=== PATIENT | female | born 1995 | race Caucasian/White ===

== ENCOUNTER 2016-08-22 18:38 | Outpatient (CLI) | payer MEDICAID ==
[2016-08-22 19:49] LABS: APPEARANCE,URINE CLEAR; BILIRUBIN,URINE NEGATIVE (NEGATIVE); GLUCOSE, URINE NEGATIVE (NEGATIVE); KETONES,URINE NEGATIVE (NEGATIVE); LEUKOCYTE ESTERASE,URINE NEGATIVE (NEGATIVE); NITRITE,URINE NEGATIVE (NEGATIVE); PROTEIN,URINE NEGATIVE (NEGATIVE); URINE SPECIFIC GRAVITY 1.009; UROBILINOGEN,URINE NEGATIVE mg/dL (<2.0)
[2016-08-22 20:03] LABS: URINE BARBITURATES SCREEN NEGATIVE; URINE METHADONE SCREEN NEGATIVE; URINE OPIATES LOW NEGATIVE; URINE PHENCYCLIDINE SCREEN NEGATIVE
--- NOTE | 2016-08-22 20:42 | Non Stress Test Report ---
Non Stress Test Datetime Report Generated by CPN: 08/22/2016 20:42 DEMOGRAPHIC Test Number: 1 EGA NST: 32.2 INDICATION Indication for Study: Other Indication for Study (NST) Other: LC URINE RESULTS Urine Protein, NST: Negative Urine Ketones - NST: Negative Urine Glucose - NST: Negative Urine Blood - NST: Negative MONITORING Monitor Explained: Monitor Explained; Test Explained; Patient Verbalized Understanding; Other Time on Monitor: 08/22/2016 19:56 Time off Monitor: 08/22/2016 20:28 NST Duration: 32 NST INTERVENTIONS NST Interventions: PO Hydration Physician Notified NST: Dr. Sarabia BABY A: [id number] BABY A Movement : Present Movement : Present Contraction Frequency : 0 FHR Baseline : 135 Accelerations : 15X15 Decelerations : None Variability : Moderate 6-25bpm NST Review: Meets Criteria for Reactive NST NST Review: Meets Criteria for Reactive NST NST Review and Verified By : Angel Austin RN NST Results: Reactive NST Results: Reactive NST REPORT Report Trigger: Send Report
== END 2016-08-22 20:34 | disposition home or self-care (01) ==
LOC: LC 18:38
PROVIDERS: ATTEND Student in an Organized Health Care Education/Training Program
PROC: 4A1HXCZ Monitoring of Products of Conception, Cardiac Rate, External Approach (ICD-10-PCS; principal; 2016-08-22)
DX: O47.03 False labor before 37 completed weeks of gestation, third trimester (principal); Z3A.32 32 weeks gestation of pregnancy
CPT/HCPCS: 80307; 81001

== ENCOUNTER 2016-08-28 17:25 | Outpatient (CLI) | payer MEDICAID ==
[2016-08-28 18:10] LABS: APPEARANCE,URINE SLIGHTLY-CLOUDY; BILIRUBIN,URINE NEGATIVE (NEGATIVE); GLUCOSE, URINE NEGATIVE (NEGATIVE); KETONES,URINE 80 mg/dL (NEGATIVE); LEUKOCYTE ESTERASE,URINE NEGATIVE (NEGATIVE); NITRITE,URINE NEGATIVE (NEGATIVE); PROTEIN,URINE NEGATIVE (NEGATIVE); URINE SPECIFIC GRAVITY 1.012; UROBILINOGEN,URINE NEGATIVE mg/dL (<2.0)
[2016-08-28 18:21] LABS: URINE BARBITURATES SCREEN NEGATIVE; URINE METHADONE SCREEN NEGATIVE; URINE OPIATES LOW NEGATIVE; URINE PHENCYCLIDINE SCREEN NEGATIVE
--- NOTE | 2016-08-28 19:56 | Non Stress Test Report ---
Non Stress Test Datetime Report Generated by CPN: 08/28/2016 19:56 DEMOGRAPHIC EGA NST: 33.1 INDICATION Indication for Study: Ordered by Provider Indication for Study (NST) Other: LC MONITORING Time on Monitor: 08/28/2016 18:30 Time off Monitor: 08/28/2016 19:00 NST Duration: 30 NST INTERVENTIONS NST Interventions: PO Hydration Physician Notified NST: Dr. Gavin BABY A: [id number] BABY A Movement : Present Contraction Frequency : x0 FHR Baseline : 145 Accelerations : 15X15 Decelerations : None Variability : Moderate 6-25bpm NST Review: Meets Criteria for Reactive NST NST Review and Verified By : Ronn RiveraKyle RN NST Results: Reactive NST REPORT Report Trigger: Send Report
== END 2016-08-28 19:47 | disposition home or self-care (01) ==
LOC: LC 17:25
PROVIDERS: ATTEND Obstetrics & Gynecology
PROC: 4A1HXCZ Monitoring of Products of Conception, Cardiac Rate, External Approach (ICD-10-PCS; principal; 2016-08-28)
DX: O47.03 False labor before 37 completed weeks of gestation, third trimester (principal); Z3A.33 33 weeks gestation of pregnancy
CPT/HCPCS: 80307; 81001

== ENCOUNTER 2016-10-04 20:51 | Outpatient (CLI) | payer MEDICAID ==
[2016-10-04 21:28] LABS: APPEARANCE,URINE SLIGHTLY-CLOUDY; BILIRUBIN,URINE NEGATIVE (NEGATIVE); GLUCOSE, URINE NEGATIVE (NEGATIVE); KETONES,URINE NEGATIVE (NEGATIVE); LEUKOCYTE ESTERASE,URINE TRACE (NEGATIVE); NITRITE,URINE NEGATIVE (NEGATIVE); PROTEIN,URINE NEGATIVE (NEGATIVE); URINE SPECIFIC GRAVITY 1.011; UROBILINOGEN,URINE NEGATIVE mg/dL (<2.0)
[2016-10-04 21:42] LABS: URINE BARBITURATES SCREEN NEGATIVE; URINE METHADONE SCREEN NEGATIVE; URINE OPIATES LOW NEGATIVE; URINE PHENCYCLIDINE SCREEN NEGATIVE
--- NOTE | 2016-10-04 23:05 | Non Stress Test Report ---
Non Stress Test Datetime Report Generated by CPN: 10/04/2016 23:05 DEMOGRAPHIC EGA NST: 38.3 INDICATION Indication for Study: Ordered by Provider Indication for Study (NST) Other: LC URINE RESULTS Urine Protein, NST: Negative Urine Ketones - NST: Negative Urine Glucose - NST: Negative Urine Blood - NST: Negative MONITORING Monitor Explained: Monitor Explained; Test Explained; Patient Verbalized Understanding Time on Monitor: 10/04/2016 22:00 Time off Monitor: 10/04/2016 22:24 NST Duration: 24 NST INTERVENTIONS NST Interventions: PO Hydration; Other NST Interventions Other: popsicle Physician Notified NST: Dr. Neilsen BABY A: [id number] BABY A Movement : Present Contraction Frequency : none FHR Baseline : 120 Accelerations : 15X15 Decelerations : None Variability : Moderate 6-25bpm NST Review: Meets Criteria for Reactive NST NST Review and Verified By : Carmen Horan RN Results: Reactive NST REPORT Report Trigger: Send Report
== END 2016-10-04 22:33 | disposition home or self-care (01) ==
LOC: LC 20:51
PROVIDERS: ATTEND Specialist
PROC: 4A1HXCZ Monitoring of Products of Conception, Cardiac Rate, External Approach (ICD-10-PCS; principal; 2016-10-04)
DX: O36.8130 Decreased fetal movements, third trimester, not applicable or unspecified (principal); Z3A.38 38 weeks gestation of pregnancy
CPT/HCPCS: 59025; 80307; 81005

== ENCOUNTER 2016-10-08 13:44 | Outpatient (CLI) | payer MEDICAID ==
[2016-10-08 14:26] LABS: APPEARANCE,URINE CLEAR; BILIRUBIN,URINE NEGATIVE (NEGATIVE); GLUCOSE, URINE NEGATIVE (NEGATIVE); KETONES,URINE NEGATIVE (NEGATIVE); LEUKOCYTE ESTERASE,URINE NEGATIVE (NEGATIVE); NITRITE,URINE NEGATIVE (NEGATIVE); PROTEIN,URINE NEGATIVE (NEGATIVE); URINE SPECIFIC GRAVITY 1.013; UROBILINOGEN,URINE NEGATIVE mg/dL (<2.0)
[2016-10-08 14:41] LABS: URINE BARBITURATES SCREEN NEGATIVE; URINE METHADONE SCREEN NEGATIVE; URINE OPIATES LOW NEGATIVE; URINE PHENCYCLIDINE SCREEN NEGATIVE
--- NOTE | 2016-10-08 16:14 | RADIOLOGY REPORT (SQ) ---
EXAM DESCRIPTION: U/S OB LIMITED COMPLETED DATE/TIME: 10/08/2016 4:01 pm REASON FOR STUDY: CLEMENTE COMPARISON: None. TECHNIQUE: Limited transabdominal grayscale ultrasound for evaluation of specific requested obstetri javier parameters. LIMITATIONS: None. FINDINGS: CLEMENTE: 18.5 cm. FHR: 155 beats per minute. PRESENTATION: Cephalic. OTHER: No other significant findings. IMPRESSION: LIMITED OBSTETRICAL ULTRASOUND WITH MEASURED PARAMETERS DELINEATED ABOVE. Trimester of : Third trimester - 28 weeks to delivery. TECHNICAL DOCUMENTATION: JOB ID: [id number]- All Rights Reserved
--- NOTE | 2016-10-08 16:14 | Non Stress Test Report ---
Non Stress Test Datetime Report Generated by CPN: 10/08/2016 16:14 DEMOGRAPHIC EGA NST: 39.0 INDICATION Indication for Study: Ordered by Provider MONITORING Monitor Explained: Monitor Explained; Test Explained; Patient Verbalized Understanding Time on Monitor: 10/08/2016 14:05 Time off Monitor: 10/08/2016 15:37 NST Duration: 92 NST INTERVENTIONS NST Interventions: PO Hydration Physician Notified NST: H. Nilson, CNM BABY A: [id number] BABY A Movement : Present Contraction Frequency : none FHR Baseline : 135 Accelerations : 15X15 Decelerations : None Variability : Moderate 6-25bpm NST Review: Meets Criteria for Reactive NST NST Review: Meets Criteria for Reactive NST NST Review and Verified By : SHAKIR DESIR Results: Reactive NST Results: Reactive NST REPORT Report Trigger: Send Report
== END 2016-10-08 16:13 | disposition home or self-care (01) ==
LOC: LC 13:44
PROVIDERS: ATTEND Obstetrics & Gynecology
PROC: 4A1HXCZ Monitoring of Products of Conception, Cardiac Rate, External Approach (ICD-10-PCS; principal; 2016-10-08)
DX: Z34.93 Encounter for supervision of normal pregnancy, unspecified, third trimester (principal); Z36 Encounter for antenatal screening of mother; Z3A.39 39 weeks gestation of pregnancy
CPT/HCPCS: 59025; 81005; 80307; 76815; Q0114

== ENCOUNTER 2016-10-10 07:13 | Outpatient (CLI) | payer MEDICAID ==
[2016-10-10 07:53] LABS: APPEARANCE,URINE CLEAR; BILIRUBIN,URINE NEGATIVE (NEGATIVE); GLUCOSE, URINE NEGATIVE (NEGATIVE); KETONES,URINE NEGATIVE (NEGATIVE)
[2016-10-10 07:54] LABS: LEUKOCYTE ESTERASE,URINE TRACE (NEGATIVE); NITRITE,URINE NEGATIVE (NEGATIVE); PROTEIN,URINE NEGATIVE (NEGATIVE); URINE SPECIFIC GRAVITY 1.013; UROBILINOGEN,URINE NEGATIVE mg/dL (<2.0)
[2016-10-10 08:08] LABS: URINE BARBITURATES SCREEN NEGATIVE; URINE METHADONE SCREEN NEGATIVE; URINE OPIATES LOW NEGATIVE; URINE PHENCYCLIDINE SCREEN NEGATIVE
[2016-10-10] MEDS ORDERED: HYDROXYZINE PAMOATE 50 MG CAPSULE ONE (08:11)
== END 2016-10-10 08:21 | disposition home or self-care (01) ==
LOC: LC 07:13
PROVIDERS: ATTEND Specialist
PROC: 4A1HXCZ Monitoring of Products of Conception, Cardiac Rate, External Approach (ICD-10-PCS; principal; 2016-10-10)
DX: O47.1 False labor at or after 37 completed weeks of gestation (principal); O36.8130 Decreased fetal movements, third trimester, not applicable or unspecified; Z3A.39 39 weeks gestation of pregnancy
CPT/HCPCS: 59025; 81005; 80307; J3490

== ENCOUNTER 2016-10-10 18:47 | Inpatient (IN) | payer MEDICAID ==
[2016-10-10] MEDS ORDERED: MISOPROSTOL 0.2 MG TABLET ONE (20:13)
[2016-10-10] MEDS ORDERED: LIDOCAINE 1% INJ-PF (10 MG/ML) 30 ML SDV ONE (20:13)
[2016-10-10] MEDS ORDERED: PENICILLIN G-K 5 MILLION UNIT VIAL ONE (20:13)
[2016-10-10] MEDS ORDERED: OXYTOCIN/NORMAL SALINE 20 UNIT/1,000 ML RTUINJ ONE (20:13)
[2016-10-10] MEDS ORDERED: PENICILLIN G POTASSIUM 5,000,000 UNIT in DEXTROSE 5%-WATER 100 ML IV ONE (20:16)
[2016-10-10] MEDS ORDERED: EPHEDRINE SULFATE INJ 50 MG/1 ML AMPULE ONE (20:39)
[2016-10-10] MEDS ORDERED: BUPIVACAINE HCL 0.25 % INJ/PF (2.5 MG/1 ML) 30 ML VIAL ONE (20:40)
[2016-10-10] MEDS ORDERED: FENTANYL/BUPIVACAINE/NS/PF 200 MCG/100 ML RTUINJ EPI ONE (20:40)
[2016-10-10 20:42] LABS: HEMOGLOBIN 11.7 g/dL (12.0-15.5); HGB HCT DIFFERENCE 0.1; MEAN CORPUSCULAR HEMOGLOBIN 26.8 pg (27.0-33.4); MEAN CORPUSCULAR HGB CONC 33.5 g/dL (32.0-36.0); MEAN CORPUSCULAR VOLUME 80 fl (80-97); RED BLOOD COUNT 4.37 10^6/uL (3.72-5.28); RED CELL DISTRIBUTION WIDTH 14.8 % (11.5-14.0); WHITE BLOOD COUNT 17.8 10^3/uL (4.0-10.5)
[2016-10-10] MEDS: RINGERS SOLUTION,LACTATED 1,000 ML IV PRN ×3 (21:00→23:17)
[2016-10-10 21:05] LABS: BASOPHILS % (MANUAL) 0 % (0-2); EOSINOPHILS % (MANUAL) 0 % (0-6); LYMPHOCYTES % (MANUAL) 6 % (13-45); TOTAL CELLS COUNTED 100
[2016-10-10 21:06] LABS: ANISOCYTOSIS SLIGHT; HYPOCHROMASIA SLIGHT; MICROCYTOSIS SLIGHT; TOXIC GRANULATION SLIGHT
[2016-10-10] MEDS ORDERED: FENTANYL/BUPIVACAINE/NS/PF 200 MCG/100 ML RTUINJ EPI PRN (22:26)
[2016-10-10] MEDS ORDERED: BUPIVACAINE HCL 0.25 % INJ/PF (2.5 MG/1 ML) 30 ML VIAL INFIL ONE (22:26)
[2016-10-10] MEDS ORDERED: BENZOIN/ALOE VERA/STORAX/TOLU TINCTURE 60 ML TP PRN (22:26)
[2016-10-10] MEDS ORDERED: DIPHENHYDRAMINE HCL 50 MG/ML VIAL IV PRN (22:26)
[2016-10-10] MEDS ORDERED: EPHEDRINE SULFATE INJ 50 MG/1 ML AMPULE IV PRN (22:26)
[2016-10-10] MEDS ORDERED: OXYTOCIN/NORMAL SALINE 20 UNIT/1,000 ML RTUINJ IV PRN (22:36)
[2016-10-11] MEDS ORDERED: FENTANYL/BUPIVACAINE/NS/PF 200 MCG/100 ML RTUINJ EPI PRN
[2016-10-11] MEDS ORDERED: PENICILLIN G POTASSIUM 2,500,000 UNIT in DEXTROSE 5%-WATER 50 ML IV SCH (00:16)
[2016-10-11] MEDS ORDERED: CEFAZOLIN SODIUM 1 GM in DEXTROSE 5%-WATER 50 ML IV PRN (00:30)
[2016-10-11] MEDS ORDERED: CITRIC ACID/SODIUM CITRATE ORAL SOLN 15 ML UDCUP ONE (00:30)
[2016-10-11] MEDS ORDERED: OXYTOCIN 10 UNIT/ML VIAL ONE (00:30)
[2016-10-11] MEDS ORDERED: CEFAZOLIN INJ 1 GM VIAL ONE (00:30)
[2016-10-11] MEDS ORDERED: FENTANYL CITRATE INJ/PF 250 MCG/5 ML AMPULE ONE (00:31)
[2016-10-11] MEDS ORDERED: FENTANYL CITRATE INJ/PF 100 MCG/2 ML AMPUL ONE ×2 (00:31→01:58)
[2016-10-11] MEDS ORDERED: EPHEDRINE SULFATE INJ 50 MG/1 ML AMPULE ONE (00:31)
[2016-10-11] MEDS ORDERED: MIDAZOLAM 2 MG/2 ML INJ ONE (00:31)
[2016-10-11] MEDS ORDERED: OXYTOCIN/NORMAL SALINE 0 UNIT/0 ML RTUINJ ONE (00:31)
[2016-10-11] MEDS ORDERED: LIDOCAINE 2% INJ-PF (20 MG/ML) 10 ML AMPUL ONE (00:32)
[2016-10-11] MEDS ORDERED: ONDANSETRON HCL INJ/PF 4 MG/2 ML SDV ONE (00:32)
[2016-10-11] MEDS ORDERED: PENICILLIN G-K 5 MILLION UNIT VIAL ONE (00:37)
[2016-10-11] MEDS ORDERED: FENTANYL CITRATE INJ/PF 100 MCG/2 ML AMPUL IV PRN ×2 (00:38)
[2016-10-11] MEDS ORDERED: PROMETHAZINE HCL INJ 25 MG/1 ML VIAL IV PRN ×2 (00:38→03:43)
[2016-10-11] MEDS ORDERED: DIPHENHYDRAMINE HCL 50 MG/ML VIAL IV PRN (00:38)
[2016-10-11] MEDS: FENTANYL CITRATE INJ/PF 100 MCG/2 ML AMPUL IV PRN ×2 (01:58→02:04)
[2016-10-11] MEDS: MEPERIDINE HCL/PF INJ 25 MG/1 ML DISP.SYRIN IV PRN ×2 (02:20→02:29)
[2016-10-11] MEDS ORDERED: MEPERIDINE HCL/PF INJ 25 MG/1 ML DISP.SYRIN ONE (02:22)
[2016-10-11] MEDS ORDERED: HYDROMORPHONE HCL INJ/PF 2 MG/ML AMPULE ONE (02:41)
[2016-10-11] MEDS ORDERED: HYDROMORPHONE HCL INJ/PF 2 MG/ML AMPULE IV ONE (02:42)
[2016-10-11] MEDS ORDERED: CEFAZOLIN 2 GM/D5W RTU 2 GM/50 ML RTUPB IV ONE (02:58)
--- NOTE | 2016-10-11 03:13 | Delivery Summary ---
Del Sum A-C Datetime Report Generated by CPN: 10/11/2016 03:13 DELIVERY PERSONNEL DELIVERY PERSONNEL: [phone];[id number] Delivery Doctor:: Vincent Fatima DO Anesthesiologist:: Chencho Gayle MD UTILIZATION MANAGEMENT RN:: Justin Morales CRNA Labor and Delivery Nurse:: Lay Austin RN Neonatal Nurse Practitioner:: BREE Herrera Nursery Nurse:: Emily Aguirre RN Railcar Switcher/CREDIT VERIFICATION CLERK: ST Vee Railcar Switcher/CREDIT VERIFICATION CLERK: Jessica Singletary ST MATERNAL INFORMATION Delivery Anesthesia: Epidural Medications After Delivery: Pitocin Drip 20 Units/1000ml NSS Estimated Blood Loss (ml): 600 Maternal Complications: None LABOR SUMMARY EDC: 10/15/2016 00:00 No. Babies in Womb: 1 Attempted: No Labor Anesthesia: Epidural LABOR INFORMATION Onset of Labor: 10/11/2016 19:00 Oxytocin: N/A Group B Beta Strep: positive Antibiotics # of Doses: 2 Antibiotics Time of Last Dose: 003 Name of Antibiotic Given: PCN G Steroids Given: None Reason Steroids Not Administered: Not Applicable MEMBRANES Membranes Rupture Method: Spontaneous Rupture of Membranes: 10/10/2016 14:00 Length of Rupture (hr): 11.25 Amniotic Fluid Color: Clear STAGES OF LABOR Stage 3 hr: 0 Stage 3 min: 1 Total Time in Labor hr: -17 Total Time in Labor min: -44 VAGINAL DELIVERY Episiotomy: None Laceration Extension: N/A Laceration Type: None Sponge Count Correct: N/A CSECTION DELIVERY Primary Indication: Nonreassuring Status CSection Urgency: Non-Scheduled CSection Incidence: Primary Labor: Labor Elective: N/A CSection Incision: Lower Uterine Transverse BABY A INFORMATION Delivery Date/Time: 10/11/2016 01:15 Method of Delivery: Born in Route : No : N/A Forceps: N/A Vacuum Extraction: N/A Shoulder Dystocia : No PRESENTATION/POSITION BABY A Presentation: Cephalic Cephalic Presentation: Vertex Breech Presentation: N/A PLACENTA INFORMATION BABY A Placenta Delivery Time : 10/11/2016 01:16 Placenta Method of Delivery: Manual Removal Placenta Status: Delivered SCORES BABY A Heart Rate 1 min: >100 bpm Resp Effort 1 min: Good Cry Reflex Irritability 1 min: Cough or Sneeze or Pulls Away Muscle Tone 1 min: Active Motion Color 1 min: Body Howe, Extremities Blue Resuscitation Effort 1 min: N/A SCORE 1 MIN: 9 Heart Rate 5 min: >100 bpm Resp Effort 5 min: Good Cry Reflex Irritability 5 min: Cough or Sneeze or Pulls Away Muscle Tone 5 min: Active Motion Color 5 min: Body Howe, Extremities Blue Resuscitation Effort 5 min: N/A SCORE 5 MIN: 9 INFORMATION BABY A Gestational Age at Delivery: 39.3 Gestational Status: Full Term- 39- 40.6 Weeks Infant Outcome : Liveborn Condition : Stable Sex: Male IDENTIFICATION BABY A Verification Date/Time: 10/11/2016 01:21 ID Band Number: [id number] Mother's Name Verified: Yes Infant RN Verifying Infant: V Monk RN Additional Verifying Personnel: B Solorzano, RN WEIGHT/LENGTH BABY A Infant Birthweight (gm): 3400 Infant Weight (lb): 7 Infant Weight (oz): 8 Length (in): 19.00 Infant Length (cm): 48.26 CORD INFORMATION BABY A No. Cord Vessels: 3 Nuchal Cord : N/A Nuchal Cord- Other: body cord Cord Blood Taken: Yes-For Storage (Mom's Blood type +) Suction: None ASSESSMENT BABY A Infant Complications: Multiple Variable Decels Physical Findings at Delivery: Molding of the Head Respirations: Appears Normal Skin to Skin: Yes Skin to Skin Time (min): 3 Infant Care By: SHAKIR Chacko Transferred To: Nursery BABY B INFORMATION : N/A
[2016-10-11] MEDS ORDERED: SIMETHICONE 80 MG TAB.CHEW PO PRN (03:43)
[2016-10-11] MEDS ORDERED: HYDROMORPHONE HCL INJ/PF 2 MG/ML AMPULE IV PRN (03:43)
[2016-10-11] MEDS ORDERED: MEASLES,MUMPS&RUBELLA VACC/PF 0.5 ML VIAL SUBCUT PRN (03:43)
[2016-10-11] MEDS ORDERED: OXYCODONE-ACETAMINOPHEN 5-325 MG TABLET PO PRN (03:43)
[2016-10-11] MEDS ORDERED: DIPH/PERTUSS(ACELL)/TETANUS VAC/PF 0.5 ML SYR (>=10YO) IM PRN (03:43)
[2016-10-11] MEDS ORDERED: ACETAMINOPHEN 325 MG TABLET PO PRN (03:43)
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
[2016-10-11] MEDS: IBUPROFEN 800 MG TABLET PO SCH ×3 (07:00→18:09)
[2016-10-11] MEDS: RINGERS SOLUTION,LACTATED 1,000 ML IV PRN ×2 (07:24→14:58)
--- NOTE | 2016-10-11 09:44 | PDOC PROGRESS REPORT ---
Subjective-OB Subjective: Post Delivery Day: 20 year old. Denies any needs at this time Doing well, holding baby, hsb at BS, pain under control, breast feeding, drowsy from pain meds Physical Exam (OB) Vital Signs: Temp Pulse Resp BP Pulse Ox 98.1 F 107 H 16 120/65 98 10/11/16 08:29 10/11/16 08:29 10/11/16 08:29 10/11/16 08:29 10/11/16 08:29 Intake & Output 10/10/16 10/11/16 10/12/16 06:59 06:59 06:59 Weight 121.85 kg - Dressing Removed: No Incision: Dressing - Lochia Lochia Amount: Small 10-25 ml Lochia Color: Rubra/Red - Abdomen Description: Soft, Round Hernia Present: No Fundal Description: Firm, Midline Fundal Height: u/u - u/2 Objective-Diagnostic Laboratory: 10/10/16 20:28 10/10/16 10/10/16 20:28 20:28 WBC 17.8 H RBC 4.37 Hgb 11.7 L Hct 35.0 L MCV 80 MCH 26.8 L MCHC 33.5 RDW 14.8 H Plt Count 213 Seg Neutrophils % Not Reportable Lymphocytes % Not Reportable Monocytes % Not Reportable Eosinophils % Not Reportable Basophils % Not Reportable Absolute Neutrophils Not Reportable Absolute Lymphocytes Not Reportable Absolute Monocytes Not Reportable Absolute Eosinophils Not Reportable Absolute Basophils Not Reportable Blood Type A POSITIVE Antibody Screen NEGATIVE Assessment and Plan(PN) - Assessment and Plan (1) GBS (group B Streptococcus carrier), +RV culture, currently Is this a current diagnosis for this admission?: Yes (2) Delivery by emergency caesarean section Is this a current diagnosis for this admission?: Yes - Time Spent with Patient Time with patient: Less than 15 minutes Medications reviewed and adjusted accordingly: Yes - Disposition Anticipated Discharge: Home Within: within 48 hours
[2016-10-11] MEDS: PRENATAL VITAMIN W-O CA NO5/FE FUMARATE/FA CAPSULE PO SCH (09:46)
[2016-10-11] MEDS: DOCUSATE SODIUM 100 MG CAPSULE PO SCH ×2 (09:46→18:10)
[2016-10-11] MEDS: OXYCODONE-ACETAMINOPHEN 5-325 MG TABLET PO PRN ×2 (16:19→21:33)
[2016-10-12] MEDS: IBUPROFEN 800 MG TABLET PO SCH ×4 (00:09→17:22)
[2016-10-12] MEDS: OXYCODONE-ACETAMINOPHEN 5-325 MG TABLET PO PRN ×4 (04:35→22:57)
[2016-10-12 06:23] LABS: MEAN CORPUSCULAR HGB CONC 33.2 g/dL (32.0-36.0); MEAN CORPUSCULAR VOLUME 81 fl (80-97); RED CELL DISTRIBUTION WIDTH 15.2 % (11.5-14.0)
[2016-10-12] MEDS: DOCUSATE SODIUM 100 MG CAPSULE PO SCH ×2 (09:41→17:21)
[2016-10-12] MEDS: PRENATAL VITAMIN W-O CA NO5/FE FUMARATE/FA CAPSULE PO SCH (09:41)
--- NOTE | 2016-10-12 10:00 | PDOC PROGRESS REPORT ---
Subjective-OB Subjective: Post Delivery Day: 20 year old. Denies any needs at this time Doing well, no c/o, feeling better today, voiding, ambulating, appetite good Physical Exam (OB) Vital Signs: Temp Pulse Resp BP Pulse Ox 98.2 F 101 H 17 120/74 97 10/12/16 08:18 10/12/16 08:18 10/12/16 08:18 10/12/16 08:18 10/12/16 08:18 Intake & Output 10/11/16 10/12/16 10/13/16 06:59 06:59 06:59 Intake Total 2600 Output Total 1800 Balance 800 Weight 121.85 kg - PIH/Pre-Eclampsia DTR's: 1 + Clonus: Negative Headache: Absent Epigastric Pain: No Visual Changes: No - Dressing Removed: No Incision: Dressing - Lochia Lochia Amount: Small 10-25 ml Lochia Color: Rubra/Red - Abdomen Description: Soft, Round Hernia Present: No Fundal Description: Firm, Midline Fundal Height: u/u - u/2 Objective-Diagnostic Laboratory: 10/12/16 06:08 10/12/16 06:08 WBC 13.0 H RBC 3.70 L Hgb 10.0 L Hct 30.0 L MCV 81 MCH 27.0 MCHC 33.2 RDW 15.2 H Plt Count 158 Assessment and Plan(PN) - Assessment and Plan (1) GBS (group B Streptococcus carrier), +RV culture, currently Is this a current diagnosis for this admission?: Yes (2) Delivery by emergency caesarean section Is this a current diagnosis for this admission?: Yes - Time Spent with Patient Time with patient: Less than 15 minutes Medications reviewed and adjusted accordingly: Yes - Disposition Anticipated Discharge: Home Within: within 24 hours
[2016-10-13] MEDS: IBUPROFEN 800 MG TABLET PO SCH ×3 (00:25→11:08)
[2016-10-13 08:42] VITALS: BP 119/68
[2016-10-13] MEDS: DOCUSATE SODIUM 100 MG CAPSULE PO SCH (09:27)
[2016-10-13] MEDS: PRENATAL VITAMIN W-O CA NO5/FE FUMARATE/FA CAPSULE PO SCH (09:27)
--- NOTE | 2016-10-13 10:39 | PDOC PROGRESS REPORT ---
Subjective-OB Subjective: Post Delivery Day: 20 year old. Denies any needs at this time Doing well, no c/o, OOB walking, passing gas, eating well, voiding, breast feeding Physical Exam (OB) Vital Signs: Temp Pulse Resp BP Pulse Ox 97.9 F 100 14 119/68 100 10/13/16 10:32 10/13/16 10:32 10/13/16 10:32 10/13/16 08:39 10/13/16 10:32 Intake & Output 10/12/16 10/13/16 10/14/16 06:59 06:59 06:59 Intake Total 2600 240 Output Total 1800 Balance 800 240 - PIH/Pre-Eclampsia DTR's: 1 + Clonus: Negative Headache: Absent Epigastric Pain: No Visual Changes: No - Dressing Removed: No Incision: Well Approximated Closure Type: op site - Lochia Lochia Amount: Scant < 10 ml Lochia Color: Rubra/Red - Abdomen Description: Tender, Soft, Round Hernia Present: No Fundal Description: Firm, Midline Fundal Height: u/u - u/2 Objective-Diagnostic Laboratory: 10/12/16 06:08 Assessment and Plan(PN) - Assessment and Plan (1) GBS (group B Streptococcus carrier), +RV culture, currently Is this a current diagnosis for this admission?: Yes (2) Delivery by emergency caesarean section Is this a current diagnosis for this admission?: Yes - Time Spent with Patient Time with patient: Less than 15 minutes Medications reviewed and adjusted accordingly: Yes - Disposition Anticipated Discharge: Home Within: Other - home today
--- NOTE | 2016-10-13 10:42 | PDOC DISCHARGE SUMMARY ---
Final Diagnosis Discharge Date: 10/13/16 - Final Diagnosis (1) GBS (group B Streptococcus carrier), +RV culture, currently Is this a current diagnosis for this admission?: Yes (2) Delivery by emergency caesarean section Is this a current diagnosis for this admission?: Yes Discharge Data - Discharge Medication Home Medications: Pnv No.122/Iron/Folic Acid [ Multi Tablet] 1 tab PO DAILY 08/22/16 Ibuprofen [Motrin 800 mg Tablet] 800 mg PO Q6 #60 tablet 10/13/16 Oxycodone HCl/Acetaminophen [Percocet 5-325 mg Tablet] 1 tab PO Q4HP PRN #30 tablet 10/13/16 Gestational Age: 39.3 Reason(s) for Admission: Onset of Labor, Group B Strep Positive Procedures: NST, Ultrasound Intrapartum Procedure(s): : Low Cervical, Transverse - Data Baby 1 Male at 1 minute: 9 at 5 minutes: 9 Weight: 3.402 kg Home with Mother: Yes Complications: No - Diagnosis Test Laboratory: Temp Pulse Resp BP Pulse Ox 97.9 F 100 14 119/68 100 10/13/16 10:32 10/13/16 10:32 10/13/16 10:32 10/13/16 08:39 10/13/16 10:32 10/10/16 10/12/16 20:28 06:08 RBC 4.37 3.70 L Hgb 11.7 L 10.0 L Hct 35.0 L 30.0 L - Discharge information/Instructions Discharge Activity: Activity As Tolerated, No Driving, No Lifting Over 10 Pounds , No Lifting/Push/Pulling, Pelvic Rest, No tub bath Discharge Diet: As Tolerated, Regular Disposition: HOME, SELF-CARE Follow up with: [facility] in: 1, Weeks
== END 2016-10-13 11:43 | disposition home or self-care (01) | DRG 766 ==
LOC: LC 18:47 → LR 20:19 → 2S 10-11 04:04
PROVIDERS: ADMIT Obstetrics & Gynecology; ATTEND Obstetrics & Gynecology
PROC: 10D00Z1 Extraction of Products of Conception, Low, Open Approach (ICD-10-PCS; principal; 2016-10-11)
DX: O76 Abnormality in fetal heart rate and rhythm complicating labor and delivery (principal); Z37.0 Single live birth; Z3A.39 39 weeks gestation of pregnancy; O99.824 Streptococcus B carrier state complicating childbirth
CPT/HCPCS: 1961; 36415; 85025; 85027; 86592; 86850; 86900; 86901; 90715; 94760; 94799; J0690; J1170; J2175; J2250; J2405; J2540; J2590; J3010; J3490; J7120

== ENCOUNTER 2016-10-21 15:32 | Observation (INO) | payer MEDICAID ==
[~2016-10-21 15:32] MED LIST: LIDOCAINE 2% INJ-PF (20 MG/ML) 10 ML AMPUL ONE; ONDANSETRON HCL INJ/PF 4 MG/2 ML SDV ONE; SUCCINYLCHOLINE CHLORIDE INJ 200 MG/10 ML VIAL ONE
[2016-10-21] MEDS: CEFAZOLIN 1 GM/D5W RTU 1 GM/50 ML RTUPB IV SCH (17:19)
[2016-10-21] MEDS ORDERED: CEFAZOLIN 1 GM/D5W RTU 1 GM/50 ML RTUPB IV SCH (22:00)
[2016-10-21] MEDS: RINGERS SOLUTION,LACTATED 1,000 ML IV PRN (23:49)
[2016-10-22] MEDS: CEFAZOLIN 1 GM/D5W RTU 1 GM/50 ML RTUPB IV SCH ×3 (01:09→17:09)
[2016-10-22 06:45] LABS: HEMATOCRIT 33.4 % (36.0-47.0); HEMOGLOBIN 11.2 g/dL (12.0-15.5); HGB HCT DIFFERENCE 0.2; MEAN CORPUSCULAR HEMOGLOBIN 27.1 pg (27.0-33.4); MEAN CORPUSCULAR HGB CONC 33.5 g/dL (32.0-36.0); MEAN CORPUSCULAR VOLUME 81 fl (80-97); RED BLOOD COUNT 4.13 10^6/uL (3.72-5.28); RED CELL DISTRIBUTION WIDTH 14.8 % (11.5-14.0); WHITE BLOOD COUNT 7.6 10^3/uL (4.0-10.5)
[2016-10-22] MEDS: RINGERS SOLUTION,LACTATED 1,000 ML IV PRN (08:49)
[2016-10-22] MEDS ORDERED: FENTANYL CITRATE INJ/PF 100 MCG/2 ML AMPUL ONE ×2 (14:06)
[2016-10-22] MEDS ORDERED: MIDAZOLAM 2 MG/2 ML INJ ONE (14:07)
[2016-10-22] MEDS ORDERED: PROPOFOL INJ 200 MG/20 ML VIAL IV ONE (14:07)
[2016-10-22] MEDS ORDERED: MORPHINE SULFATE 10 MG/ML INJ ONE (14:07)
[2016-10-22] MEDS ORDERED: FENTANYL CITRATE INJ/PF 100 MCG/2 ML AMPUL IV PRN ×3 (14:30)
[2016-10-22] MEDS ORDERED: DIPHENHYDRAMINE HCL 50 MG/ML VIAL IV PRN (14:30)
[2016-10-22] MEDS ORDERED: PROMETHAZINE HCL INJ 25 MG/1 ML VIAL IV PRN (14:30)
[2016-10-22] MEDS ORDERED: MEPERIDINE HCL/PF INJ 25 MG/1 ML DISP.SYRIN IV PRN (14:30)
--- NOTE | 2016-10-22 14:49 | Operative Report ---
Operative Report DATE OF SURGERY: 10/22/16 PREOPERATIVE DIAGNOSIS: Wound seroma POSTOPERATIVE DIAGNOSIS: Wound abscess OPERATION: Incision and drainage of wound with packing SURGEON: JANICE ZEPEDA ANESTHESIA: GA TISSUE REMOVED OR ALTERED: Wound debridement COMPLICATIONS: None ESTIMATED BLOOD LOSS: 20 cc INTRAOPERATIVE FINDINGS: Wound abscess, intact fascia PROCEDURE: Patient was taken to the OR and placed in supine position. Anesthesia was induced. Her incision was prepared and draped in sterile fashion. Wound was beginning to look a little angry with large bleb in the middle of the incision. The incision was opened with a scalpel blade. Opening was approximately 5 cm in length. I did not open the entire incision. A foul odor was immediately noted. Cultures were obtained. The incision was probed with fingertip along its entire length at the level of the fascia. The fascia was intact. The subcuticular nitesh that were visible were removed. The wound was copiously irrigated. Was some white material that was debrided from the wound. The bleb at the midline incision was investigated and there was a small tract from the wound into the bleb. This skin bleb was then excised. One piece of iodoform packing was then used to pack the incision. Under the skin the packing extended the entire length of the incision. Wound was dressed patient was brought out of anesthesia and taken recovery in stable condition.
[2016-10-22] MEDS ORDERED: OXYCODONE-ACETAMINOPHEN 5-325 MG TABLET PO PRN ×3 (15:16→21:35)
[2016-10-22] MEDS ORDERED: CEFAZOLIN 1 GM/D5W RTU 1 GM/50 ML RTUPB IV SCH (22:00)
[2016-10-23] MEDS: CEFAZOLIN 1 GM/D5W RTU 1 GM/50 ML RTUPB IV SCH ×2 (01:59→10:37)
--- NOTE | 2016-10-23 11:47 | DISCHARGE SUMMARY E ---
Discharge Summary NAME: ELLIOTT GOMEZ : 1995 AGE: 20Y ADMITTED: 10/21/2016 DISCHARGED: 10/23/2016 INDICATION FOR ADMISSION: Postop wound seroma. HOSPITAL COURSE: This is a 20-year-old who is almost 2 weeks status post primary who had postop course complicated by seroma. She was admitted on the evening of 10/21 and started on IV antibiotics. She was taken to the OR the following morning and had the wound opened and drained, cleaned, and packed wet to dry with saline dressings. Intraoperative surgical consultation was obtained and agreed with this. Wound culture was obtained and is currently negative at discharge, but the patient was maintained on Ancef. She did not have leukocytosis throughout her stay. At the time of discharge, the defect is approximately 11 cm in length that includes the undermined areas on the lateral aspect of the wound. As the patient is only 2 weeks with a to care for and , it is deemed most prudent to do a wound VAC to encourage rapid wound healing. She is deemed to be at risk for depression if she should increase risk for depression and increase risk for narcotic use should she need to be maintained on wet-to-dry dressings. The wound VAC paperwork for home healthcare was completed. She will be discharged with Keflex 500 1 p.o. q.i.d. for 5 more days, #20, no refills, and Percocet 5/325 one to two p.o. q.i.d. p.r.n., #30, no refills. She will have home health do wound VAC dressing changes approximately 3 times weekly. Will see her back in clinic 2 weeks, sooner should problems arise. DICTATING PHYSICIAN: DAVID BEAVERS M.D. [id number] PHY#: [id number] ID: [id number] JOB#: [id number] ACCT: [id number] cc:RONA RUBI M.D. DAVID BEAVERS M.D. >
[2016-10-23 16:45] VITALS: BP 102/64
== END 2016-10-23 19:30 | disposition home or self-care (01) ==
LOC: 2S 15:32 → UNDOADMOB 15:32 → 2S 15:47
PROVIDERS: ADMIT Student in an Organized Health Care Education/Training Program; ATTEND Student in an Organized Health Care Education/Training Program
PROC: 0J980ZZ Drainage of Abdomen Subcutaneous Tissue and Fascia, Open Approach (ICD-10-PCS; principal; 2016-10-22 14:30)
DX: O86.0 Infection of obstetric surgical wound (principal)
CPT/HCPCS: 36415; 87070; 87205; 85027; 87075; 10060; G0378 ×3; J2250; J0690 ×3; J3010; J0330; J2405; J7120 ×2; J2704; J3490; 840; J2270